=== PATIENT | female | born 1970 | race Caucasian/White ===

== ENCOUNTER → 2018-08-03 11:20 | Outpatient (CLI) | payer OTHER, SELFPAY ==
[2018-08-03 11:41] LABS: Estradiol 17.7 pg/mL; Follicle Stimulating Hormone 12.4 mIU/mL
== END ==
DX: E89.0 Postprocedural hypothyroidism (principal); N95.1 Menopausal and female climacteric states
CPT/HCPCS: 82670; 83001

== ENCOUNTER → 2019-10-25 06:24 | Outpatient (CLI) | payer OTHER, SELFPAY ==
--- NOTE | 2019-10-25 06:37 | MRI_ITS ---
STUDY: MRI LEFT ANKLE WITHOUT CONTRAST REASON FOR EXAM: Increasing left ankle pain, posterior bulging, Achilles tendinitis. TECHNIQUE: Standardized fat and water weighted pulse sequences were obtained in all 3 orthogonal planes. COMPARISON: None. FINDINGS: There is edema in the lateral subcutis adipose space of the distal lower leg. There is a small cyst at the posterior medial aspect of the posterior tuberosity of the calcaneus (T2 axial image 21) measuring 0.6 cm in AP dimension. Normal posterior tibialis tendon. There is a type II accessory navicular with mild bone edema adjacent to the synchondrosis (inversion recovery series 10 image 18). Normal flexor digitorum longus tendon. Normal flexor hallucis longus tendon. Normal peroneus longus and brevis tendons. Normal tibialis anterior tendon. Normal extensor hallucis longus tendon. There is a very small volume of fluid in the extensor digitorum longus tendon sheath and a very small partial tear of the extensor digitorum longus tendon (T2 axial image 19). There is fusiform thickening of the Achilles tendon in the watershed zone (inversion recovery sagittal images 11-13) measuring 1 cm in AP dimension. There is no discrete tear of the Achilles tendon. Normal plantar fascia. Normal plantar calcaneal tubercles. Normal intrinsic muscles of the rearfoot. Normal distal tibiofibular syndesmotic ligamentous complex. Normal lateral ligamentous complex. Normal subtalar ligaments and sinus tarsi. Normal deltoid ligamentous complexes. Normal plantar calcaneonavicular (spring) ligament. Normal tibiotalar articulation. Normal talar dome. Normal subtalar articulations. Normal talonavicular articulation. Normal calcaneocuboid articulation. Normal navicular-cuneiform articulations. MRI/Lower Ext Joint Only (Routine) IMPRESSION: Achilles tendinosis without demonstrated Achilles tendon tear. Very small partial tear and very mild tenosynovitis of the extensor digitorum longus tendon. Accessory navicular with mild bone edema adjacent to the synchondrosis. Small cyst adjacent to the posterior tuberosity of the calcaneus. Electronically Signed: Clayton Quintanilla MD at 9:14 EDT Tel , Service support ,
== END ==
LOC: MRI 06:28
PROVIDERS: PCP Family Medicine; Referring Provider Podiatrist; Visit Provider Podiatrist
DX: M76.62 Achilles tendinitis, left leg (principal)
CPT/HCPCS: 73721

== ENCOUNTER 2020-06-17 15:30 | Outpatient (RCR) | payer OTHER, SELFPAY | END 2020-06-17 19:00 | disposition home or self-care (01) | LOC: PT 15:30 | PROVIDERS: PCP Family Medicine; Referring Provider Podiatrist; Visit Provider Podiatrist | DX: M76.62 Achilles tendinitis, left leg (principal); M76.61 Achilles tendinitis, right leg | CPT/HCPCS: 97035; 97110; 97140; 97162; 97530 ==

== ENCOUNTER → 2023-09-20 | Outpatient (CLI) | payer OTHER, SELFPAY ==
--- NOTE | 2023-09-20 06:34 | MRI_ITS ---
STUDY: MRI RIGHT ELBOW REASON FOR EXAM: Female, 53 years old. Elbow injury. Pain. TECHNIQUE: Standardized fat and water weighted pulse sequences were obtained in all 3 orthogonal planes. COMPARISON: None. FINDINGS: Small elbow joint effusion (coronal series 4 image 17). Normal radial collateral ligamentous complex. Common extensor tendinosis with thickening and increased signal intensity (coronal series 4 images a-11). Normal ulnotrochlear articulation. Normal ulnar collateral ligamentous complex. Common flexor tendinosis with increased signal intensity and thickening (coronal series 4 images 6-8). The cubital tunnel is normal, with a normal ulnar nerve. Thickening and increased signal intensity of the distal biceps tendon with a high grade near complete partial tear of the distal tendon with surrounding soft tissue edema (axial series 7 images 11-20, sagittal series 6 images 11-17). Normal lacertus fibrosis. Normal brachialis musculotendinous insertion. Normal triceps tendon and teno-osseous insertion. Normal olecranon process. The visualized distal humerus, proximal radius, and ulna are normal. The visualized muscles of the distal arm and proximal forearm are normal. Normal soft tissues. MRI/Upper Ext Joint Only(Routine) IMPRESSION: Common extensor and common flexor tendinosis. No partial thickness or full thickness tear. Distal biceps tendinosis with a high-grade near complete partial tear of the distal tendon as described. Small joint effusion. Electronically Signed: Aston Spivey MD at 9:59 EDT ,
== END | disposition home or self-care (01) ==
DX: S59.901A Unspecified injury of right elbow, initial encounter (principal)
CPT/HCPCS: 73221

== ENCOUNTER 2023-11-02 11:30 | Day surgery (SDC) | payer OTHER, SELFPAY ==
[2023-11-02] VITALS (8 sets, daily range): BP systolic 106–131; BP diastolic 74–84; PULSE 65–77; RESP 14–16; TEMP 36.6–36.8; O2SAT 95–100; BMI 26.9
[2023-11-02] MEDS: Lactated Ringers 1,000 ML 15 ML IV (12:10)
--- NOTE | 2023-11-02 12:17 | PCM.HP.BLA ---
History and Physical Date of Admission: 11/02/23 ERIC AYERS, is a 53 F who presents to the office today for Establishment with [facility] for constipation, acid reflux and nausea. Her symptoms have been progressively getting worse over time. Reflux is Waking her up in the night. She use to run marathons but has not been able to due to her health since turning 48. She feels her voice has changed and she cannot sing anymore. She has heartburn constantly everyday associated with nausea but no vomiting. There are no foods that make it worse. She has been taking pantoprazole 20 mg daily for a few years but has not helped. The only thing that has helepd in the past is zantac. Famotidine has not been helpful. Has always had constipation but is worse now that he cannot run. Does not take anything for constipation. She is going to the bathroom at least once a day. She denies melena, abdominal pain, weight loss, fevers or diarrhea. She does not smoke or drink alcohol. She has a family history of both colon and esophageal cancer in her grandparents. This has made her nervous that she may develop cancer Colonoscopy and EGD 2017: colonoscopy without abnormalities repeat in 10 years. EGD showing esophagitis and a small hiatal hernia. ROS Const Constitutional: Positive for weakness; No fatigue, fever(s) or weight change ENT ENT: Positive for difficulty swallowing Gastro GI: Positive for bloating, constipation, difficulty swallowing, excessive flatus and nausea/dyspepsia; No abdominal pain, belching, change in bowel habits, change in stool character, coffee ground emesis, cramping, diarrhea, heartburn, feeling full early, incontinent of stools, Vomiting blood/hematemesis, Blood in stool, loose stools, Black,tarry stools, pain with swallowing, vomiting or other Musc Musculoskeletal: Positive for joint pain, back pain, joint swelling, numbness, tingling, sciatica and restless legs Skin Skin: Positive for dry skin, itchy eyes and rash; No yellowing of the eye Neuro Neurology: Positive for weakness, numbness, tingling and restless legs Psych Psychiatric: No anxiety and No depression Endo Endocrine: No fatigue or weight change Aller/Imm Allergy/Immunologic: Positive for itchy eyes Ezequiel/Lymp Hematologic/Lymphatic: No easy bleeding or easy bruising Exam Const General: cooperative and comfortable Nutritional Appearance: average body habitus and well nourished [facility] Head: normal to inspection Ears: hearing grossly normal bilaterally Nose: external nose normal Face and sinus: normal facial exam Mouth: oral mucosae normal Throat: posterior oropharynx normal Eyes General: appearance normal, both eyes and all related structures Neck Neck: normal visual inspection Chest Chest palpation & inspection: normal inspection of the chest and normal palpation of entire chest wall Resp Effort & Inspection: normal respiratory effort Auscultation: Bilateral: Clear to Auscultation Cardio Palpation: normal PMI Rate: regular rate Rhythm: regular rhythm GI Inspection: normal to inspection Auscultation: normal bowel sounds Percussion: normal to percussion Palpation: no hepatosplenomegaly Skin General: no rashes or lesions noted Neuro General: patient alert Extrem General: normal to inspection Psych Affect: normal affect Assessment and Plan Assessment and Plan (1) Hiatal hernia: Status: Acute Plan Patient is here today for establishment with [facility] progressively worsening reflux associated with nausea. Previous EGD revealed esophagitis and small hiatal hernia. -We will schedule her for EGD to rule out worsening hiatal hernia -We will increase her dose of pantoprazole to 40 mg daily -She has to take her PPI in the evening due to also taking levothyroxine in the morning. Mentioned that this may be the reason why PPI therapy has not been helpful -Recommended taking famotidine for breakthrough reflux I have examined the patient and the H&P has been reviewed. There are no clinical changes since date of exam.
--- NOTE | 2023-11-02 12:30 | EGD_PTH ---
PATIENT: ERIC AYERS LOC: EN U#:[id number] AGE/SX: 53/F ROOM: RE11/02/[address]: Dr. Tian Zuleta DO : 1970 BED: DIS: 11/02/2023 SPEC #: [id number] RECD: 11/02/23 13:30 STATUS: CELESTE MICHAEL #: [id number] ELAINE: 11/02/23 12:[address]: Tian Zuleta DEPT: SURGICAL PATHOLOGY RECD BY: Natalee Corona ENTERED: 11/02/23 13:47 SP TYPE: EGD BIOPSY OT DR: CHRISTINA Saunders Tissues: A - Duodenum, NOS B - Gastric mucous membrane C - Esophagus, NOS Procedures: Surgery Specimen Level IV HEADER OPERATION: EGD biopsy PRE-OP DIAGNOSIS: Hiatal hernia TISSUE SUBMITTED: A- Duodenum biopsy, B- Gastric body, C- Random esophagus MICROSCOPIC DIAGNOSIS A. Duodenum, biopsy: Fragments of duodenal mucosa, no pathologic diagnosis. B. Gastric body, biopsy: Mild gastritis. See microscopic description and comment. C. Esophagus, random biopsy: Fragments of benign squamous epithelium. 11/03/2023 COMMENT B. The results of immunohistochemistry for Helicobacter pylori will be reported separately ([id number]). MICROSCOPIC DESCRIPTION Slides are reviewed. B. The specimen shows fragments of gastric mucosa with chronic inflammatory cell infiltrates in the lamina propria consisting of lymphocytes and plasma cells, consistent with mild chronic gastritis. GROSS DESCRIPTION A. Received in fixative is one container labeled with the patient's name and designated Duodenum biopsy. The specimen consists of two irregular fragments of light garcia soft tissue that in aggregate measure 0.8 x 0.4 x 0.1 cm. The specimen is totally submitted in one cassette. B. Received in fixative is one container labeled with the patient's name and designated Gastric body biopsy. The specimen consists of multiple irregular fragments of light garcia soft tissue that in aggregate measure 0.8 x 0.4 x 0.1 cm. The specimen is totally submitted in one cassette. C. Received in fixative is one container labeled with the patient's name and designated Random esophagus biopsy. The specimen consists of multiple irregular fragments of light garcia soft tissue that in aggregate measure 0.8 x 0.4 x 0.1 cm. The specimen is totally submitted in one cassette. 11/02/2023 TC:3 CPT:96504u1
--- NOTE | 2023-11-02 12:30 | IMM_PTH ---
PATIENT: ERIC AYERS LOC: EN U#:[id number] AGE/SX: 53/F ROOM: RE11/02/[address]: Dr. Tian Zuleta DO : 1970 BED: DIS: 11/02/2023 SPEC #: [id number] RECD: 11/02/23 13:57 STATUS: CELESTE REQ #: [id number] ELAINE: 11/02/23 12:[address]: Tian Zuleta DEPT: IMMUNOHISTOCHEMISTRY RECD BY: Andrey Ramirez ENTERED: 11/02/23 13:57 SP TYPE: IMMUNO OTHR DR: CHRISTINA Saunders Tissues: B - Gastric mucous membrane Procedures: H Pylori (initial) PHYSICIAN & INSTITUTION [place] [address] SPECIMEN INFORMATION: Tissue Source: B- Gastric body Clinical Info: Hiatal hernia Specimen Number: [id number] CPT code: 86550 METHODOLOGY: Deparaffinized sections of prefer/formalin-fixed tissue or PAP/DQ stained slides are incubated with monoclonal/polyclonal antibodies/oligonucleotide probes. Localization is made via biotin free immunoperoxidase method. Appropriate controls are performed and reacted as expected. Results on target cell population are indicated in the following table: RESULTS: ANTIBODY / CLONE RESULT Block B H Pylori (polyclonal) negative These tests were developed and their performance characteristics determined by [facility]. They may not have been cleared or approved by the U.S. Food and Drug Administration. The FDA has determined that such clearance or approval is not necessary. The above immunohistochemical/dualISH markers are ordered and reviewed by the Pathologist. INTERPRETATION: B. Gastric body, biopsy: Negative for Helicobacter pylori organisms. CAMILO/ 11/03/2023
--- NOTE | 2023-11-02 12:31 | PCM.PRE.AN2 ---
ASA Classification* ASA Classification ASA Classification: 2 Assessment & Plan Anesthesia* Anesthesia Assessment Anesthesia Assessment: Discussed sedation and/or anesthesia options, risks, benefits, and alternatives with patient/parents/legal guardian/POA. Questions invited. The patient/parents/legal guardian/POA seems to understand and agrees to proceed with anesthesia plan. Reviewed the physical assessment, medical history, allergy history and patient home medications list prior to surgery/procedure/anesthetic and documented any changes. Performed airway and anesthesia risk assessments. Anesthesia Type Anesthesia Type: MAC History Source History Obtained from:: Patient and Chart Anesthesia Focused Assessment* Temperature: 98.3 F Pulse Rate: 65 Blood Pressure: 131/74 Respiratory Rate: 16 Pulse Ox: 100 Oxygen Delivery Method: Room Air Airway Assessment Mouth opens: 2 cm Mallampati Score: IV Teeth Condition: Caps/Crowns (Left lower molar has a crown. Harding is tight.) Neck Range of motion (ROM): Full ROM Focused Labs Anesthesia Preop lab: CBC WBC 6.5 k/mm3 (4.4-11.0) 02/27/12 10:20 RBC 3.51 M/mm3 (4.2-5.4) L 02/27/12 10:20 Hgb 11.1 g/dl (12.0-15.0) L 02/27/12 10:20 Hct 32.8 % (37-47) L 02/27/12 10:20 Plt Count 168 K/mm3 (150-450) 02/27/12 10:20 CHEMISTRY Potassium 4.1 mmol/L (3.5-5.1) 08/11/18 07:35 Sodium 141 mmol/L (136-145) 08/11/18 07:35 BUN 12 mg/dL (7-18) 08/11/18 07:35 Creatinine 0.88 mg/dL (0.55-1.02) 08/11/18 07:35 Glucose 80 mg/dL (74-106) 08/11/18 07:35 TSH 1.95 uIU/mL (0.358-3.74) 08/03/18 07:50 COAG PT 13.3 SECONDS (11.9-14.4) 02/16/12 11:10 Urine Test Negative Negative 02/16/12 11:10 Pre-Assessment Diagnosis/Proposed Procedure Planned Operative Procedure(s): EGD Anesthesia History Anesthesia History - geriatric nurse: Anesthesia History - geriatric nurse Hx Hospitalization No 10/28/23 09:47 Any Problems With Anesthesia Yes: PONV, SLOW TO WAKE UP 10/28/23 09:47 Cholinesterase deficiency No 10/28/23 09:47 You/Your Family Experience No 10/28/23 09:47 fever (hyperthermia) with Relationship Recent Exposure to Contagious No 11/02/23 12:11 Disease Does patient have nerve No 10/28/23 09:47 stimulator Patient instructed to have device shut off --Does patient have Pacemaker No 11/02/23 12:11 or ICD? When Was Last Pacemaker Check QUESTION #4 FULL TEXT: You/Your Family Experience fever (hyperthermia) with Anesthesia Last Oral Intake Last Oral intake: Last Oral Intake NPO since 07:00 11/02/23 12:11 Meds taken in AM with sips of Yes 11/02/23 12:11 water? Meds patient instructed to take am of surgery Any additional information?: Yes Meds taken in AM with sips of water?: Yes PONV PONV - geriatric nurse: PONV - geriatric nurse Female Yes 10/28/23 09:47 HX of Motion Sickness Yes 10/28/23 09:47 HX of N/V After Surgery Yes 10/28/23 09:47 Non-Smoker Yes 10/28/23 09:47 Duration of Surgery greater No 10/28/23 09:47 than 60 minutes Number of Risk Factors 4 10/28/23 09:47 PONV Score Severe Risk 10/28/23 09:47 Height & Weight Height & Weight: Anesthesia: Height & Weight Height 5 ft 5 in 11/02/23 12:11 Weight: 73.3 kg 11/02/23 12:11 Body Mass Index (BMI) 26.9 11/02/23 12:11 Respiratory Assessment Respiratory Assessment - geriatric nurse: Respiratory Tract Infection Hx - geriatric nurse Hx Respiratory Tract Infection No 10/28/23 09:47 STOP Sleep Apnea STOP Sleep Apnea - geriatric nurse: STOP Sleep Apnea - geriatric nurse Hx Hypertension No 10/28/23 09:47 Hx Sleep Apnea No 10/28/23 09:47 CPAP BIPAP Do you snore loudly (louder No 10/28/23 09:47 than talking or can be heard Do you often feel tired/ No 10/28/23 09:47 fatigued/ sleepy during daytime? Has anyone observed you stop No 10/28/23 09:47 breathing during sleep? STOP Results Negative 10/28/23 09:47 QUESTION #5 FULL TEXT : Do you snore loudly (louder than talking or can be heard through closed doors)? 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 Specify any problems Hx of Preganancy in last 3 N/A 10/28/23 09:47 Months Nurse Filling Out Transfusion NBUCHER 10/28/23 09:47 & Questions: Date: 10/28/23 10/28/23 09:47 Time: 09:52 10/28/23 09:47 Patient unable to answer at this time (ie. confused, unrespo /Reproduction History /Reproductive History - geriatric nurse: /Reproductive Hx- geriatric nurse Hx Now No 10/28/23 09:47 Gestational Age (in weeks): EDC: Hx Hx Para Hx Section SAB No 10/28/23 09:47 Active Medications Active Medications: Current Medications Generic Name Dose Route Start Last Admin Trade Name Freq PRN Reason Stop Dose Admin Lactated Ringer's 1,000 mls @ 15 mls/hr 11/02/23 11:45 11/02/23 12:10 IV 15 mls/hr .Q48H JESSY Administration PFSH Medical History Wears glasses History of Clostridium difficile infection (~1999) Rash History of steroid therapy Thyroid disease Restless legs Injury of head and neck History of traumatic brain injury (~1999) History of hiatal hernia History of edema Depression Acid reflux Ear pain, right Motion sickness Vaginal candidiasis Cough History of Clostridioides difficile colitis Hypothyroidism Non-smoker Fibrous breast lumps Headache, unspecified Allergic rhinitis, unspecified Unspecified hemorrhoids Urticaria, unspecified Weight gain Other fatigue DUB (dysfunctional uterine bleeding) Carpal tunnel syndrome TBI (traumatic brain injury) Vitamin D deficiency, unspecified Home Medications ?Medication ?Instructions ?Recorded ?Last Taken ?Type Lactobacillus acidophilus and 1 cap PO DAILY 10/28/23 Unknown History rhamnosus 15 billion cell capsule (Florajen Women) calcium 500 mg tablet 400 mg PO DAILY 10/28/23 Unknown History ergocalciferol (vitamin D2) 1,250 1,250 mcg PO QWEEK 10/28/23 Unknown History mcg (50,000 unit) capsule fexofenadine 60 mg tablet ([place]by 60 mg PO Q24H PRN allergy symptoms 10/28/23 Unknown History Allergy) levothyroxine 100 mcg tablet 100 mcg PO DAILY 10/28/23 11/02/23 06:00 History pantoprazole 20 mg tablet,delayed 40 mg PO DAILY 10/28/23 Unknown History release turmeric 400 mg capsule 500 mg PO DAILY 10/28/23 Unknown History Allergy/AdvReac Type Severity Reaction Status Date / Time No Known Allergies Allergy Verified 11/02/23 12:02 Surgical History History of cholecystectomy History of elbow surgery History of esophagogastroduodenoscopy (EGD) H/O colonoscopy H/O: hysterectomy History of tubal ligation History of thyroidectomy, subtotal Hx of tonsillectomy Social History Smoking Status: Never smoker Review of Systems (Anesthesia) ROS Narrative System reviewed and no additional complaints, except as documented.
--- NOTE | 2023-11-02 13:19 | OP.EGD_ITS ---
Patient Name: Fallon Jaimes Procedure Date: 11/02/2023 12:52 PM Date of : 1970 Age: 53 Procedure: Upper GI endoscopy Indications: Heartburn Providers: Tian Zuleta DO Referring MD: Aram Saunders Medicines: Monitored Anesthesia Care Patient Profile: This is a 53 year old female. Refer to note in patient chart for documentation of history and physical. Patient has symptoms of chronic dyspepsia, acute heartburn and acute nausea. Complications: No immediate complications. Procedure: Pre-Anesthesia Assessment: - Prior to the procedure, a History and Physical was performed, and patient medications and allergies were reviewed. The patient is competent. The risks and benefits of the procedure and the sedation options and risks were discussed with the patient. All questions were answered and informed consent was obtained. Patient identification and proposed procedure were verified by the physician in the pre-procedure area. Mental Status Examination: alert and oriented. Airway Examination: normal oropharyngeal airway and neck mobility. Respiratory Examination: clear to auscultation. CV Examination: normal. Prophylactic Antibiotics: The patient does not require prophylactic antibiotics. Prior Anticoagulants: The patient has taken no anticoagulant or antiplatelet agents. ASA Grade Assessment: II - A patient with mild systemic disease. After reviewing the risks and benefits, the patient was deemed in satisfactory condition to undergo the procedure. The anesthesia plan was to use monitored anesthesia care (MAC). Immediately prior to administration of medications, the patient was re-assessed for adequacy to receive sedatives. The heart rate, respiratory rate, oxygen saturations, blood pressure, adequacy of pulmonary ventilation, and response to care were monitored throughout the procedure. The physical status of the patient was re-assessed after the procedure. After obtaining informed consent, the endoscope was passed under direct vision. Throughout the procedure, the patient's blood pressure, pulse, and oxygen saturations were monitored continuously. The Endoscope was introduced through the mouth, and advanced to the second part of duodenum. The upper GI endoscopy was accomplished without difficulty. The patient tolerated the procedure well. Scope In: 1:06:29 PM Scope Out: 1:13:39 PM Total Procedure Duration Time 0 hours 7 minutes 10 seconds Findings: The examined esophagus was normal. Biopsies were obtained from the proximal and distal esophagus with cold forceps for histology of suspected eosinophilic esophagitis. Diffuse minimal inflammation characterized by erythema was found in the entire examined stomach. Biopsies were taken with a cold forceps for histology. Verification of patient identification for the specimen was done. Estimated blood loss was minimal. Biopsies were taken with a cold forceps for Helicobacter pylori testing. Verification of patient identification for the specimen was done. Estimated blood loss was minimal. Segmental mild inflammation characterized by erosions and erythema was found in the duodenal bulb. Biopsies were taken with a cold forceps for histology. Verification of patient identification for the specimen was done. Estimated blood loss was minimal. Impression: - Normal esophagus. - Bile gastritis. Biopsied. - Bile duodenitis. Biopsied. - Biopsies were taken with a cold forceps for evaluation of eosinophilic esophagitis. Recommendation: - Discharge patient to home. - Resume previous diet. - Continue present medications. - Await pathology results. - Gastric emptying study Procedure Code(s): --- Professional --- 74674, Esophagogastroduodenoscopy, flexible, transoral; with biopsy, single or multiple CPT copyright 2021 [employer]. All rights reserved. The codes documented in this report are preliminary and upon miller head wet process review may be revised to meet current compliance requirements. Tian Zuleta DO 11/02/2023 1:19:30 PM This report has been signed electronically. Number of Addenda: 0 Note Initiated On: 11/02/2023 12:52 PM
--- NOTE | 2023-11-02 13:20 | OP.CCLET_ITS ---
11/02/2023 Aram Saunders Re : Upper GI endoscopy procedure for Fallon Jaimes Elisar Ceferino This procedure was performed on Thursday, November 02, 2023. My impressions and recommendations are as follows: Impressions : - Normal esophagus. - Bile gastritis. Biopsied. - Bile duodenitis. Biopsied. - Biopsies were taken with a cold forceps for evaluation of eosinophilic esophagitis. Recommendations : - Discharge patient to home. - Resume previous diet. - Continue present medications. - Await pathology results. - Gastric emptying study My findings are described in the full procedure note, which is enclosed. If I can be of further assistance, please feel free to contact me at . Sincerely, Tian Zuleta, 11/02/2023 1:19:30 PM This report has been signed electronically.
--- NOTE | 2023-11-02 13:21 | PCM.POST.ANE ---
Anesthesia: Postop Eval I Current Vital Signs Temperature: 97.9 F Pulse Rate: 77 Blood Pressure: 110/77 Respiratory Rate: 16 Pulse Ox: 96 Oxygen Delivery Method: Room Air Assessment Airway patent: Yes Spontaneous unlabored respirations: Yes Mental status: Asleep nausea: No Vomiting: No Anesthesia Complication: No Fluid Hydration Crystalloid volume administer (ml): 400 Total IV fluid infused: 400 Progress Note Anesthesia document: Postop Eval 1 completed: Yes
--- NOTE | 2023-11-02 16:49 | PCM.POSTANE2 ---
Anesthesia Postop Eval I Sum Postop Eval Completion status Anesthesia document: Postop Eval 1 completed: Yes Anesthesia Postop Eval I Summary Anesthesia Postop Eval I Summary: Anesthesia Postop Eval I: Assessment Summary Airway patent Yes 11/02/23 13:22 [email or web address] Spontaneous unlabored Yes 11/02/23 13:22 [email or web address] respirations Mental status Asleep 11/02/23 13:22 [email or web address] nausea No 11/02/23 13:22 [email or web address] Vomiting No 11/02/23 13:22 [email or web address] Anesthesia Postop Eval I: Fluid Summary Crystalloid volume administer 400 11/02/23 13:22 [email or web address] (ml) Colloids volume administered ( ml) Blood Product volume administered (ml) Total IV fluid infused 400 11/02/23 13:22 [email or web address] Anesthesia Postop Eval I: Summary Notes Anesthesia Complication No 11/02/23 13:22 [email or web address] Anesthesia Complication Comment: Post-operative progress note Anesthesia: Postop Eval II Evaluation Mental status: Awake and Calm Pain Level: 0 nausea: No Vomiting: No
== END 2023-11-02 14:37 | disposition home or self-care (01) ==
LOC: EN 11:36 → AC 11:37
PROVIDERS: Visit Provider Internal Medicine Gastroenterology
PROC: 0DJ08ZZ Inspection of Upper Intestinal Tract, Via Natural or Artificial Opening Endoscopic (ICD-10-PCS; CPT 43235; principal; 2023-11-02 12:25)
DX: D13.0 Benign neoplasm of esophagus (principal); K44.9 Diaphragmatic hernia without obstruction or gangrene; K29.80 Duodenitis without bleeding; K29.70 Gastritis, unspecified, without bleeding; K21.9 Gastro-esophageal reflux disease without esophagitis; Z79.899 Other long term (current) drug therapy; K26.9 Duodenal ulcer, unspecified as acute or chronic, without hemorrhage or perforation; Z79.890 Hormone replacement therapy; E03.9 Hypothyroidism, unspecified
CPT/HCPCS: 43239; 88305; 88342; J7120; J2405

== ENCOUNTER → 2023-12-06 | Outpatient (CLI) | payer OTHER, SELFPAY ==
--- NOTE | 2023-12-06 11:47 | NM_ITS ---
CLINICAL: 53-year-old female with history of bile reflux and chronic nausea. SEMI-SOLID PHASE 99m Tc SULFUR COLLOID GASTRIC EMPTYING STUDY COMPARISON: None available FINDINGS: The patient was administered 1.1 mCi of 99m Tc sulfur colloid mixed with oatmeal and consumed per os. Image acquisitions in the anterior-posterior projections were obtained for 60 minutes. There is prompt visualization of the stomach. There is no gastroesophageal reflux identified. The T ? raw data emptying was calculated to be 35.16 minutes, (Normal: 12-56 minutes). NM/Gastric Emptying Study IMPRESSION: 1. NORMAL 99m Tc sulfur colloid semi-solid phase (oatmeal) gastric emptying imaging examination. A. There is normal and preserved semi-solid phase gastric emptying compared to normal controls. (Cora et al, J Nucl Med Tech 38: 186, 2010). Electronically Signed: Deandre Jones DO at 15:40 EDT ,
== END | disposition home or self-care (01) ==
LOC: NM 11:47
PROVIDERS: Referring Provider Internal Medicine Gastroenterology; Visit Provider Internal Medicine Gastroenterology
DX: K29.60 Other gastritis without bleeding (principal)
CPT/HCPCS: 78264; A9541